=== PATIENT | male | born 1940 | race Caucasian/White ===

== ENCOUNTER 2018-01-23 21:23 | Emergency (ER) | payer MEDICARE ==
[~2018-01-23] VITALS: Ht 185.4 cm; Wt 79.1 kg
[~2018-01-23 21:23] MED LIST: BAYER CHEWABLE81 MG PO; ECOTRIN325 MG PO; GARLIC1 CAP PO; GLUCOSAMINE & C1 CAP PO; ISOSORBIDE MONO30 M1 PO; MAGNESIUM OXID250 MG PO; MULTIPLE VITAMI1 TA1 PO; PLAVIX75 MG PO
[2018-01-23 21:29] VITALS: Ht 185.4 cm; Wt 79.1 kg
[2018-01-23] MEDS ORDERED: CO Q1060 MG (21:34)
[2018-01-23 22:20] LABS: BASOPHILS 0.4 % (0-2); EOSINOPHILS 5.7 % (0-7); HEMATOCRIT 41.6 % (42.0-54.0); HEMOGLOBIN 14.4 g/dL (13.5-17.5); LYMPHOCYTES 28.4 % (15-50); MCH 31.4 pg (26.0-34.0); MCHC 34.6 g/dL (31.0-37.0); MCV 90.6 fL (80.0-100.0); MEAN PLATELET VOLUME 9.4 fL (7.4-10.4); MONOCYTES 13.4 % (2-11); NEUTROPHILS 52.1 % (40-80); PLATELET COUNT 122 10x3/uL (130-400); RBC 4.59 10x6/uL (4.20-6.10); RDW 13.5 % (11.5-14.5); WBC 4.8 10x3/uL (4.8-10.8)
[2018-01-23 22:33] LABS: APTT 28.7 SECONDS (22.8-39.4); INR 1.07 (0.85-1.17); PROTIME 13.5 SECONDS (11.6-15.0)
[2018-01-23 22:41] LABS: ALBUMIN 3.6 g/dL (3.4-5.0); ALKALINE PHOSPHATASE 61 U/L (46-116); ALT (SGPT) 20 U/L (10-68); BILIRUBIN - TOTAL 0.41 mg/dL (0.2-1.3); CALC OSMOLALITY 282 mosm/kg (275-300); CALCIUM 8.9 mg/dL (8.5-10.1); CARBON DIOXIDE 30.3 mmol/L (21.0-32.0); CHLORIDE - SERUM 104 mmol/L (98-107); CREATININE - SERUM 1.6 mg/dL (0.6-1.3); GLUCOSE 119 mg/dL (74-106); PROTEIN - SERUM 7.9 g/dL (6.4-8.2); SODIUM 140 mmol/L (136-145); UREA NITROGEN 21 mg/dL (7-18); eGFR NON AFRICAN AMERICAN 45 mL/min (90-120)
[2018-01-23 22:53] LABS: CREATINE KINASE 100 UL (21-232); PRO BNP 630 pg/mL (0-450); TROPONIN-I < 0.017 ng/mL (0.000-0.060)
[2018-01-24 02:48] VITALS: BP 136/68
== END 2018-01-24 02:48 | disposition home or self-care (01) ==
LOC: D.ER 21:23
PROVIDERS: Family Medicine
DX: R07.9 Chest pain, unspecified (principal); N28.9 Disorder of kidney and ureter, unspecified; R06.09 Other forms of dyspnea; R53.1 Weakness; R42 Dizziness and giddiness; I10 Essential (primary) hypertension; I49.3 Ventricular premature depolarization